=== PATIENT | male | born 1960 | race Hispanic/Latino ===

== ENCOUNTER 2019-01-12 21:02 | Emergency (ER) | payer MEDICAID ==
[~2019-01-12 21:02] MED LIST: AMLO10TA7 PO; DIAZ10TA PO; PHEN100C23 PO; TRAM50TA4 PO; WARF-67 PO; ZOLP10TA2 PO
[2019-01-12] MEDS ORDERED: MORPHINE SULFATE 4 MG/1ML SYG ONE (21:41)
[2019-01-12] MEDS ORDERED: ONDANSETRON HCL 4 MG/2 ML VIAL ONE (21:41)
[2019-01-12] MEDS ORDERED: SODIUM CHLORIDE 0.9% 500ML 500 ML IV ONE (21:41)
[2019-01-12 21:55] LABS: EOSINOPHILS % (AUTO) 2.8 % (0.0-8.0); HEMATOCRIT 33.3 % (42-54); LYMPHOCYTES % (AUTO) 33.3 % (21.0-51.0); MEAN CORPUSCULAR HEMOGLOBIN 35.5 pg (27.0-33.0); MEAN CORPUSCULAR HGB CONC 34.5 g/dL (32.0-36.0); MEAN CORPUSCULAR VOLUME 102.8 fL (79-99); MONOCYTES % (AUTO) 13.5 % (3.0-13.0); NEUTROPHILS % (AUTO) 49.4 % (40.0-77.0); PLATELET COUNT (AUTO) 304 K/uL (130-400); RED BLOOD CELL COUNT(AUTO) 3.24 MIL/uL (4.50-6.20); RED CELL DISTRIBUTION WIDTH 14.1 % (11.0-15.5)
[2019-01-12 22:03] LABS: POTASSIUM 3.7 mmol/L (3.5-5.1)
== END 2019-01-12 23:56 | disposition home or self-care (01) ==
LOC: EDH 21:02
DX: M96.841 Postprocedural hematoma of a musculoskeletal structure following other procedure (principal); M25.561 Pain in right knee; M25.461 Effusion, right knee; I10 Essential (primary) hypertension; Z98.890 Other specified postprocedural states; Z72.0 Tobacco use
CPT/HCPCS: 36415; 80048; 85025; 93971; 96374; 96375; 99285; J2270; J2405; J7040

== ENCOUNTER 2019-03-12 10:23 | Emergency (ER) | payer MEDICAID ==
[2019-03-12] MEDS ORDERED: KETOROLAC TROMETHAMINE 30MG/ML ONE (10:54)
== END 2019-03-12 11:02 | disposition home or self-care (01) ==
LOC: EDH 10:23
DX: S63.592A Other specified sprain of left wrist, initial encounter (principal); I10 Essential (primary) hypertension; Z98.890 Other specified postprocedural states; Z72.0 Tobacco use; X50.0XXA Overexertion from strenuous movement or load, initial encounter; Y93.89 Activity, other specified; Y92.89 Other specified places as the place of occurrence of the external cause; Y99.8 Other external cause status
CPT/HCPCS: 29125; 73110; 96372; 99284; J1885

== ENCOUNTER 2019-03-14 08:30 | Emergency (ER) | payer MEDICAID ==
[2019-03-14] MEDS ORDERED: HYDROCODONE/ACETAMINOPHEN 5/325 MG TAB ONE (09:20)
== END 2019-03-14 09:55 | disposition home or self-care (01) ==
LOC: EDH 08:30
DX: S63.502A Unspecified sprain of left wrist, initial encounter (principal); I10 Essential (primary) hypertension; Z72.0 Tobacco use; Z98.890 Other specified postprocedural states; Y93.H1 Activity, digging, shoveling and raking; Y93.89 Activity, other specified; Y92.89 Other specified places as the place of occurrence of the external cause; Y99.8 Other external cause status
CPT/HCPCS: 29125

== ENCOUNTER 2019-03-22 01:43 | Emergency (ER) | payer MEDICAID | END 2019-03-22 02:25 | disposition home or self-care (01) | LOC: EDH 01:43 | DX: Z02.83 Encounter for blood-alcohol and blood-drug test (principal); I10 Essential (primary) hypertension; Z98.890 Other specified postprocedural states ==

== ENCOUNTER 2019-03-22 02:55 | Emergency (ER) | payer MEDICAID ==
[2019-03-22] MEDS ORDERED: PHENYTOIN SODIUM 100 MG ERCAP PO ONE (04:45)
[2019-03-22] MEDS ORDERED: ACETAMINOPHEN EXTRA STRENGTH 500 MG TABLET ONE (04:46)
[2019-03-22] MEDS ORDERED: SULFAMETHOX-TMP DS 800/160 TAB ONE (04:46)
[2019-03-22] MEDS ORDERED: IBUPROFEN 200 MG TAB ONE (04:47)
== END 2019-03-22 05:02 | disposition home or self-care (01) ==
LOC: EDH 02:55
DX: S90.412A Abrasion, left great toe, initial encounter (principal); G40.89 Other seizures; I10 Essential (primary) hypertension; Z98.890 Other specified postprocedural states; Z72.0 Tobacco use; X58.XXXA Exposure to other specified factors, initial encounter; Y93.89 Activity, other specified; Y92.89 Other specified places as the place of occurrence of the external cause; Y99.8 Other external cause status

== ENCOUNTER 2019-04-07 23:10 | Emergency (ER) | payer MEDICAID | END 2019-04-08 01:25 | disposition home or self-care (01) | LOC: EDH 23:10 | DX: S09.8XXA Other specified injuries of head, initial encounter (principal); K74.60 Unspecified cirrhosis of liver; I10 Essential (primary) hypertension; E11.9 Type 2 diabetes mellitus without complications; I25.10 Atherosclerotic heart disease of native coronary artery without angina pectoris; Z72.0 Tobacco use; Y08.89XA Assault by other specified means, initial encounter; Y93.89 Activity, other specified; Y92.098 Other place in other non-institutional residence as the place of occurrence of the external cause; Y99.8 Other external cause status | CPT/HCPCS: 70450 ==

== ENCOUNTER 2021-01-11 09:56 | Emergency (ER) | payer MEDICAID ==
[~2021-01-11] VITALS: Ht 175.3 cm; Wt 90.3 kg
[~2021-01-11 09:56] MED LIST changes: +AMLO-258 PO; -AMLO10TA7 PO
[2021-01-11 09:57] VITALS: BP 144/91
[2021-01-11] MEDS ORDERED: HYDROCODONE/ACETAMINOPHEN 5/325 MG TAB PO SCH (12:30)
[2021-01-11] MEDS ORDERED: KETOROLAC 30MG VIAL (30MG/ML) IM SCH (12:30)
[2021-01-11] MEDS ORDERED: IBUP-2070 PO (13:03)
[2021-01-11] MEDS ORDERED: CYCL5TAB PO (13:03)
[2021-01-11 13:19] VITALS: BP 136/76
== END 2021-01-11 13:11 | disposition home or self-care (01) ==
LOC: EDH 09:56
DX: S60.212A Contusion of left wrist, initial encounter (principal); S60.222A Contusion of left hand, initial encounter; F17.210 Nicotine dependence, cigarettes, uncomplicated; Z79.1 Long term (current) use of non-steroidal anti-inflammatories (NSAID); Z79.01 Long term (current) use of anticoagulants; Z79.899 Other long term (current) drug therapy; W01.198A Fall on same level from slipping, tripping and stumbling with subsequent striking against other object, initial encounter; Y93.89 Activity, other specified; Y92.89 Other specified places as the place of occurrence of the external cause; Y99.8 Other external cause status
CPT/HCPCS: 29125; 73100; 73130; 96372; 99284; J1885

== ENCOUNTER 2021-01-12 07:18 | Emergency (ER) | payer MEDICAID ==
[~2021-01-12] VITALS: Ht 175.3 cm; Wt 90.3 kg
[~2021-01-12 07:18] MED LIST changes: +CYCL5TAB PO; +IBUP-2070 PO
[2021-01-12] MEDS ORDERED: HYDROCODONE/ACETAMINOPHEN 5/325 MG TAB PO SCH (08:00)
== END 2021-01-12 08:54 | disposition home or self-care (01) ==
LOC: EDH 07:18
DX: S60.212A Contusion of left wrist, initial encounter (principal); Z79.01 Long term (current) use of anticoagulants; Z79.899 Other long term (current) drug therapy; Z79.1 Long term (current) use of non-steroidal anti-inflammatories (NSAID); X58.XXXA Exposure to other specified factors, initial encounter; Y93.89 Activity, other specified; Y92.89 Other specified places as the place of occurrence of the external cause; Y99.8 Other external cause status

== ENCOUNTER 2022-12-25 16:06 | Emergency (ER) | payer MEDICAID ==
[~2022-12-25] VITALS: Ht 175.3 cm; Wt 75.7 kg
[~2022-12-25 16:06] MED LIST changes: +HYOS0.124 SL
[2022-12-25 16:52] VITALS: BP 189/83
[2022-12-25 17:38] LABS: BASOPHILS % (AUTO) 0.6 % (0.0-5.0); EOSINOPHILS % (AUTO) 1.7 % (0.0-8.0); HEMATOCRIT 34.9 % (42-54); LYMPHOCYTES % (AUTO) 44.9 % (21.0-51.0); MEAN CORPUSCULAR HEMOGLOBIN 38.5 pg (27.0-33.0); MEAN CORPUSCULAR VOLUME 110.1 fL (79-99); MONOCYTES % (AUTO) 9.6 % (3.0-13.0); NEUTROPHILS % (AUTO) 42.8 % (40.0-77.0); PLATELET COUNT (AUTO) 161 K/uL (130-400); RED BLOOD CELL COUNT(AUTO) 3.17 MIL/uL (4.50-6.20); RED CELL DISTRIBUTION WIDTH 17.2 % (11.0-15.5); WHITE BLOOD COUNT (AUTO) 4.8 K/uL (4.8-10.8)
[2022-12-25 17:44] LABS: APPEARANCE,URINE CLEAR (CLEAR); BILIRUBIN,URINE NEGATIVE (NEGATIVE); COLOR,URINE LIGHT-YELLOW (YELLOW); GLUCOSE, URINE (UA) NEGATIVE (NEGATIVE); KETONES,URINE NEGATIVE (NEGATIVE); LEUKOCYTE ESTERASE ,URINE NEGATIVE Leu/uL (NEGATIVE); NITRATE,URINE NEGATIVE (NEGATIVE); OCCULT BLOOD,URINE NEGATIVE (NEGATIVE); PROTEIN,URINE 10 mg/dL (NEGATIVE); UROBILINOGEN,URINE 0.2 mg/dL (0.2-1.0)
[2022-12-25 17:46] LABS: WBC,URINE 0-1 /HPF (0-1)
[2022-12-25 17:59] LABS: ALBUMIN 3.9 g/dL (3.5-5.0); CREATININE 0.9 mg/dL (0.5-1.5); TOTAL PROTEIN, SERUM 7.7 g/dL (6.0-8.3)
[2022-12-25 18:09] LABS: POTASSIUM 2.9 mmol/L (3.5-5.1)
[2022-12-25] MEDS ORDERED: KETOROLAC 60 MG VIAL (30MG/ML) IM ONE (18:30)
[2022-12-25] MEDS ORDERED: POTASSIUM BICARB/CIT AC 25 MEQ TABLET.EFF PO ONE (18:30)
[2022-12-25] MEDS ORDERED: MORPHINE 2 MG SYG IVP ONE (18:30)
== END 2022-12-25 21:23 | disposition home or self-care (01) ==
LOC: EDH 16:06
DX: G89.29 Other chronic pain (principal); R10.31 Right lower quadrant pain; F17.200 Nicotine dependence, unspecified, uncomplicated; I10 Essential (primary) hypertension; N20.0 Calculus of kidney; Z79.899 Other long term (current) drug therapy; Z87.19 Personal history of other diseases of the digestive system; Z87.442 Personal history of urinary calculi; Z98.890 Other specified postprocedural states
CPT/HCPCS: 99285; 74176; 96374; 80053; 83690; 85025; 81001; 36415; 74018; 96372; J1885

== ENCOUNTER 2023-02-08 22:07 | Observation (INO) | payer MEDICAID ==
[~2023-02-08] VITALS: Ht 175.3 cm; Wt 78.5 kg
[2023-02-08] MEDS ORDERED: ENOXAPARIN SODIUM 80 MG/0.8 ML SQ ONE (23:00)
[2023-02-08] MEDS ORDERED: FUROSEMIDE 40MG VIAL IVP ONE (23:00)
[2023-02-08] MEDS ORDERED: MORPHINE 4 MG SYG IVP ONE (23:00)
[2023-02-08] MEDS ORDERED: IPRATROPIUM/ALBUTEROL SULFATE 3 ML SOLUTION IH ONE (23:00)
[2023-02-08] MEDS ORDERED: ASPIRIN 325MG TAB PO ONE (23:00)
[2023-02-08] MEDS ORDERED: NITROGLYCERIN 1GM OINT 1 INCH/1GM TD ONE (23:00)
[2023-02-08 23:08] LABS: ABG BASE EXCESS -2.9 mmol/L (-2.0-3.0); ABG HCO3 20.7 mmol/L (21.0-28.0); ABG OXYGEN SATURATION 95.7 % (95.0-99.0); ABG PCO2 33 mmHg (35-48)
[2023-02-09 00:06] LABS: BASOPHILS % (AUTO) 0.7 % (0.0-5.0); EOSINOPHILS % (AUTO) 3.2 % (0.0-8.0); HEMATOCRIT 32.8 % (42-54); LYMPHOCYTES % (AUTO) 45.7 % (21.0-51.0); MEAN CORPUSCULAR HEMOGLOBIN 39.2 pg (27.0-33.0); MEAN CORPUSCULAR HGB CONC 34.1 g/dL (32.0-36.0); MEAN CORPUSCULAR VOLUME 114.7 fL (79-99); MONOCYTES % (AUTO) 8.3 % (3.0-13.0); NEUTROPHILS % (AUTO) 41.6 % (40.0-77.0); PLATELET COUNT (AUTO) 238 K/uL (130-400); RED BLOOD CELL COUNT(AUTO) 2.86 MIL/uL (4.50-6.20); RED CELL DISTRIBUTION WIDTH 13.2 % (11.0-15.5); WHITE BLOOD COUNT (AUTO) 4.1 K/uL (4.8-10.8)
[2023-02-09 00:32] LABS: B-TYPE NATRIURETIC PEPTIDE 169 pg/mL (0-100)
[2023-02-09 00:52] LABS: CREATININE 0.9 mg/dL (0.5-1.5); POTASSIUM 3.5 mmol/L (3.5-5.1)
[2023-02-09 01:06] LABS: ALBUMIN 3.6 g/dL (3.5-5.0); TOTAL PROTEIN, SERUM 8.3 g/dL (6.0-8.3)
[2023-02-09] MEDS ORDERED: ALBUTEROL 0.083% 2.5 MG/3 ML INH IH ONE (01:30)
[2023-02-09] MEDS ORDERED: MORPHINE 4 MG SYG IVP ONE (02:00)
[2023-02-09] MEDS ORDERED: IOHEXOL 350 MG/ML 100ML INFUS..BTL IV ONE (02:08)
[2023-02-09] MEDS ORDERED: HYDRALAZINE 20MG/ML VIAL IV PRN (02:30)
[2023-02-09] MEDS ORDERED: CLONIDINE HCL 0.1 MG TABLET PO PRN (02:30)
[2023-02-09] MEDS ORDERED: ACETAMINOPHEN 325 MG TAB PO PRN (02:30)
[2023-02-09] MEDS ORDERED: HYDROCODONE/ACETAMINOPHEN 5/325 MG TAB PO PRN (02:30)
[2023-02-09] MEDS ORDERED: ALBUTEROL 0.083% 2.5 MG/3 ML INH IH PRN (02:30)
[2023-02-09] MEDS ORDERED: LABETALOL 20MG SYG IV PRN (02:30)
[2023-02-09] MEDS ORDERED: ONDANSETRON 4MG INJ IVP PRN (02:30)
[2023-02-09] MEDS ORDERED: ACETAMINOPHEN 650 MG SUPPOSITORY RC PRN (02:30)
[2023-02-09] MEDS: FUROSEMIDE 40MG VIAL IV SCH ×2 (03:38→14:31)
[2023-02-09] MEDS ORDERED: HEPARIN 5,000 UNIT VIAL SQ PRN (07:00)
[2023-02-09 07:18] LABS: EOSINOPHILS % (AUTO) 3.5 % (0.0-8.0); HEMATOCRIT 36.4 % (42-54); LYMPHOCYTES % (AUTO) 27.5 % (21.0-51.0); MEAN CORPUSCULAR HEMOGLOBIN 38.6 pg (27.0-33.0); MEAN CORPUSCULAR HGB CONC 33.5 g/dL (32.0-36.0); MEAN CORPUSCULAR VOLUME 115.2 fL (79-99); MONOCYTES % (AUTO) 6.7 % (3.0-13.0); NEUTROPHILS % (AUTO) 60.8 % (40.0-77.0); PLATELET COUNT (AUTO) 276 K/uL (130-400); RED BLOOD CELL COUNT(AUTO) 3.16 MIL/uL (4.50-6.20); RED CELL DISTRIBUTION WIDTH 13.2 % (11.0-15.5)
[2023-02-09] MEDS: INSULIN HUMULIN R 100 UNIT/ML 3ML SQ SCH ×2 (07:30→11:30)
[2023-02-09] MEDS: HEPARIN 25,000 UNITS/250ML D5W 250 ML IV SCH ×2 (08:11→13:00)
[2023-02-09] MEDS ORDERED: ENOXAPARIN SODIUM 30 MG/0.3 ML SQ SCH (09:00)
[2023-02-09] MEDS ORDERED: CEFTRIAXONE 1G VIAL IV SCH (09:00)
[2023-02-09] MEDS ORDERED: AZITHROMYCIN 500MG+NS 250ML IV SCH (09:00)
[2023-02-09 11:00] VITALS: BP 156/75
[2023-02-09] MEDS ORDERED: NICO-777 TP (12:54)
[2023-02-09] MEDS ORDERED: ACET-2079 PO (12:54)
[2023-02-09] MEDS ORDERED: SERT-438 PO (13:00)
[2023-02-09] MEDS ORDERED: SUCR1TAB PO (13:00)
[2023-02-09] MEDS ORDERED: LINA290C PO (13:00)
[2023-02-09] MEDS ORDERED: OMEP40CA21 PO (13:00)
[2023-02-09] MEDS ORDERED: LISI20TA24 PO (13:00)
[2023-02-09] MEDS ORDERED: ONDA-104 PO (13:00)
[2023-02-09] MEDS ORDERED: DICY20TA2 PO (13:00)
[2023-02-09] MEDS ORDERED: ACETAMINOPHEN WITH CODEINE 1 TAB TAB PO PRN (14:00)
[2023-02-09] MEDS ORDERED: HYOSCYAMINE SULFATE 0.125 MG TAB.SUBL SL PRN (14:00)
[2023-02-09] MEDS ORDERED: DIAZEPAM 10 MG PO PRN (14:00)
[2023-02-09] MEDS ORDERED: PHENYTOIN SODIUM 100 MG ERCAP PO SCH (14:00)
[2023-02-09] MEDS ORDERED: MORPHINE 2 MG SYG IVP PRN (14:00)
[2023-02-09] MEDS ORDERED: ZOLPIDEM TARTRATE 5 MG TAB PO PRN (14:30)
[2023-02-09] MEDS ORDERED: DIAZEPAM 5 MG TABLET PO PRN (14:30)
[2023-02-09 14:48] LABS: INR 0.93 (0.85-1.15); PROTHROMBIN TIME 10.6 SEC (9.6-11.6)
[2023-02-09 14:49] LABS: PARTIAL THROMBOPLASTIN TIME 78.9 SEC (26.3-35.5)
[2023-02-09 16:12] VITALS: BP 152/76
[2023-02-09] MEDS ORDERED: SERTRALINE HCL 50 MG TABLET PO SCH (21:00)
[2023-02-09] MEDS ORDERED: NON-FORMULARY MEDICATION 1 EACH (Sertraline HCl 1 TAB) PO SCH (21:00)
[2023-02-09] MEDS ORDERED: NON-FORMULARY MEDICATION 1 EACH (Zolpidem Tartrate (Ambien) 10 MG) PO SCH (21:00)
[2023-02-09] MEDS ORDERED: FAMOTIDINE 20MG VIAL IV SCH (21:00)
[2023-02-10] MEDS ORDERED: NICOTINE 21 MG/ 24 HR PATCH TD SCH ×2 (09:00)
[2023-02-10] MEDS ORDERED: LISINOPRIL 20 MG TABLET PO SCH (09:00)
[2023-02-10] MEDS ORDERED: AMLODIPINE 5 MG TAB PO SCH (09:00)
[2023-02-10] MEDS ORDERED: NON-FORMULARY MEDICATION 1 EACH (Amlodipine Besylate 10 MG) PO SCH (09:00)
== END 2023-02-09 18:34 | disposition left against medical advice (07) ==
LOC: EDH 22:07 → EDHIP 22:08 → 4DH 02-09 10:45 → 4BH 02-09 15:29
PROVIDERS: ADMIT Internal Medicine; ATTEND Internal Medicine
DX: I74.9 Embolism and thrombosis of unspecified artery (principal); I11.0 Hypertensive heart disease with heart failure; I50.9 Heart failure, unspecified; G40.909 Epilepsy, unspecified, not intractable, without status epilepticus; M79.89 Other specified soft tissue disorders; J81.0 Acute pulmonary edema; E78.5 Hyperlipidemia, unspecified; F17.200 Nicotine dependence, unspecified, uncomplicated; Z96.652 Presence of left artificial knee joint; Z79.899 Other long term (current) drug therapy; Z98.890 Other specified postprocedural states; Z86.19 Personal history of other infectious and parasitic diseases
CPT/HCPCS: 96372 ×2; 96375 ×3; 99285; 82803; 83880; 85025 ×2; 36415 ×2; 71045; 93005; 36600; 94640 ×2; 96376; 96365; 96366; 82550 ×4; 80185; 83874 ×4; 84484 ×4; 80053; 85610; 85730 ×2; 82948 ×3; 71260; 74177; 93306; 93356; 93970; 94664; J2270 ×2; J1650; J1940 ×3; G0378 ×16; J0696; J0456; J1644 ×2; Q9967; 85007; 96367

== ENCOUNTER 2023-05-17 11:15 | Emergency (ER) | payer MEDICAID ==
[~2023-05-17 11:15] MED LIST changes: +ACET-2079 PO; -CYCL5TAB PO; -DIAZ10TA PO; +DICY20TA2 PO; -IBUP-2070 PO; +LINA290C PO; +LISI20TA24 PO; +NICO-777 TP; +OMEP40CA21 PO; +ONDA-104 PO; +SERT-438 PO; +SUCR1TAB PO; -TRAM50TA4 PO; -WARF-67 PO; +[UNRECOGNIZED DRUG - CODE] PO
[2023-05-18] MEDS ORDERED: LACT10SO9 PO (22:19)
[2023-05-18] MEDS ORDERED: METH4TAB3 PO (22:19)
[2023-05-18] MEDS ORDERED: FAMO-136 PO (22:19)
== END 2023-05-17 18:04 | disposition left against medical advice (07) ==
LOC: EDH 11:15
DX: R10.9 Unspecified abdominal pain (principal); R11.2 Nausea with vomiting, unspecified; I10 Essential (primary) hypertension; R56.9 Unspecified convulsions; F17.200 Nicotine dependence, unspecified, uncomplicated; Z79.899 Other long term (current) drug therapy; Z98.890 Other specified postprocedural states
CPT/HCPCS: 74176

== ENCOUNTER → 2023-05-18 | Emergency (ER) | payer MEDICAID ==
[~2023-05-18] VITALS: Ht 175.3 cm; Wt 73.0 kg
[~2023-05-18] MED LIST changes: +FAMO-136 PO; +FAMOTIDINE 20MG VIAL IV ONE; +LACT10SO9 PO; +METH4TAB3 PO; +SOLU-MEDROL 125MG VIAL IVP ONE
[2023-05-18 19:06] LABS: APPEARANCE,URINE CLEAR (CLEAR); BILIRUBIN,URINE NEGATIVE (NEGATIVE); COLOR,URINE LIGHT-YELLOW (YELLOW); GLUCOSE, URINE (UA) NEGATIVE (NEGATIVE); KETONES,URINE NEGATIVE (NEGATIVE); LEUKOCYTE ESTERASE ,URINE NEGATIVE Leu/uL (NEGATIVE); NITRATE,URINE NEGATIVE (NEGATIVE); OCCULT BLOOD,URINE NEGATIVE (NEGATIVE); PH,URINE 5.5 (5.0-8.0); PROTEIN,URINE 10 mg/dL (NEGATIVE); UROBILINOGEN,URINE 0.2 mg/dL (0.2-1.0)
[2023-05-18 19:09] LABS: ADD UA MICROSCOPIC YES
[2023-05-18 19:12] LABS: MUCUS,URINE RARE LPF (None Seen); RBC,URINE 0-1 /HPF (0-1); WBC,URINE 0-1 /HPF (0-1)
[2023-05-18 19:18] LABS: BASOPHILS # (AUTO) 0.04 K/uL (0.00-0.20); BASOPHILS % (AUTO) 0.6 % (0.0-5.0); EOSINOPHILS # (AUTO) 0.06 K/uL (0.00-0.70); EOSINOPHILS % (AUTO) 0.9 % (0.0-8.0); HEMATOCRIT 40.8 % (42-54); IMMATURE GRANULOCYTE ABSOLUTE 0.02 K/uL (0-1); LYMPHOCYTES # (AUTO) 3.2 K/uL (1.0-4.8); LYMPHOCYTES % (AUTO) 49.3 % (21.0-51.0); MEAN CORPUSCULAR HEMOGLOBIN 37.7 pg (27.0-33.0); MEAN CORPUSCULAR HGB CONC 34.6 g/dL (32.0-36.0); MEAN CORPUSCULAR VOLUME 109.1 fL (79-99); MONOCYTES # (AUTO) 0.5 K/uL (0.1-1.0); MONOCYTES % (AUTO) 8.4 % (3.0-13.0); NEUTROPHILS # (AUTO) 2.6 K/uL (1.8-7.7); NEUTROPHILS % (AUTO) 40.5 % (40.0-77.0); PLATELET COUNT (AUTO) 205 K/uL (130-400); RED BLOOD CELL COUNT(AUTO) 3.74 MIL/uL (4.50-6.20); RED CELL DISTRIBUTION WIDTH 14.8 % (11.0-15.5); WHITE BLOOD COUNT (AUTO) 6.5 K/uL (4.8-10.8)
[2023-05-18 19:27] LABS: CREATININE 1.2 mg/dL (0.5-1.5); POTASSIUM 3.4 mmol/L (3.5-5.1)
[2023-05-18 19:39] LABS: ALBUMIN 4.1 g/dL (3.5-5.0); BILIRUBIN,TOTAL 0.5 mg/dL (0.2-1.0); TOTAL PROTEIN, SERUM 8.1 g/dL (6.0-8.3)
[2023-05-18 22:39] VITALS: BP 160/68; PULSE 64; RESP 18; O2SAT 98
== END ==
LOC: EDH 18:22
DX: K21.9 Gastro-esophageal reflux disease without esophagitis (principal); G89.29 Other chronic pain; M25.511 Pain in right shoulder; M25.562 Pain in left knee; K59.00 Constipation, unspecified; I10 Essential (primary) hypertension; R56.9 Unspecified convulsions; F17.200 Nicotine dependence, unspecified, uncomplicated; Z79.899 Other long term (current) drug therapy; Z98.890 Other specified postprocedural states
CPT/HCPCS: 99284; 96374; 96375; 84484; 80053; 83690; 85025; 81001; 36415; 93005; J2930; S0028; J3490

== ENCOUNTER 2023-06-13 06:51 | Emergency (ER) | payer MEDICAID ==
[~2023-06-13] VITALS: Ht 175.3 cm; Wt 90.7 kg
[~2023-06-13 06:51] MED LIST changes: -FAMOTIDINE 20MG VIAL IV ONE; -SOLU-MEDROL 125MG VIAL IVP ONE
[2023-06-13 08:02] LABS: BASOPHILS # (AUTO) 0.03 K/uL (0.00-0.20); BASOPHILS % (AUTO) 0.6 % (0.0-5.0); EOSINOPHILS # (AUTO) 0.18 K/uL (0.00-0.70); EOSINOPHILS % (AUTO) 3.9 % (0.0-8.0); HEMATOCRIT 30.7 % (42-54); IMMATURE GRANULOCYTE ABSOLUTE 0.03 K/uL (0-1); LYMPHOCYTES # (AUTO) 1.4 K/uL (1.0-4.8); LYMPHOCYTES % (AUTO) 29.5 % (21.0-51.0); MEAN CORPUSCULAR HEMOGLOBIN 37.2 pg (27.0-33.0); MEAN CORPUSCULAR HGB CONC 33.6 g/dL (32.0-36.0); MEAN CORPUSCULAR VOLUME 110.8 fL (79-99); MONOCYTES # (AUTO) 0.5 K/uL (0.1-1.0); MONOCYTES % (AUTO) 11.4 % (3.0-13.0); NEUTROPHILS # (AUTO) 2.5 K/uL (1.8-7.7); PLATELET COUNT (AUTO) 229 K/uL (130-400); RED BLOOD CELL COUNT(AUTO) 2.77 MIL/uL (4.50-6.20); RED CELL DISTRIBUTION WIDTH 13.8 % (11.0-15.5); WHITE BLOOD COUNT (AUTO) 4.6 K/uL (4.8-10.8)
[2023-06-13 08:20] LABS: ALBUMIN 3.2 g/dL (3.5-5.0); BILIRUBIN,TOTAL 0.5 mg/dL (0.2-1.0); CREATININE 0.9 mg/dL (0.5-1.5); POTASSIUM 4.1 mmol/L (3.5-5.1); TOTAL PROTEIN, SERUM 6.8 g/dL (6.0-8.3)
[2023-06-13 09:36] LABS: APPEARANCE,URINE CLEAR (CLEAR); BILIRUBIN,URINE NEGATIVE (NEGATIVE); COLOR,URINE LIGHT-YELLOW (YELLOW); GLUCOSE, URINE (UA) NEGATIVE (NEGATIVE); KETONES,URINE NEGATIVE (NEGATIVE); LEUKOCYTE ESTERASE ,URINE NEGATIVE Leu/uL (NEGATIVE); NITRATE,URINE NEGATIVE (NEGATIVE); OCCULT BLOOD,URINE NEGATIVE (NEGATIVE); PROTEIN,URINE NEGATIVE (NEGATIVE); UROBILINOGEN,URINE 0.2 mg/dL (0.2-1.0)
[2023-06-13 09:38] LABS: ADD UA MICROSCOPIC NO
[2023-06-13 09:44] LABS: AMPHET/METH SCREEN,URINE NEGATIVE (NEGATIVE); BARBITURATE SCREEN, URINE NEGATIVE (NEGATIVE); BENZODIAZEPINES SCREEN,URINE POSITIVE (NEGATIVE); CANNABINOID SCREEN,URINE NEGATIVE (NEGATIVE); COCAINE SCREEN,URINE NEGATIVE (NEGATIVE); OPIATE SCREEN,URINE NEGATIVE (NEGATIVE); PHENCYCLIDINE SCREEN,URINE NEGATIVE (NEGATIVE)
[2023-06-13] MEDS ORDERED: ACETAMINOPHEN 325 MG TAB PO ONE ×2 (10:00→18:00)
[2023-06-13 10:26] LABS: INR < 0.93 (0.85-1.15); PROTHROMBIN TIME 10.6 SEC (9.6-11.6)
[2023-06-13 10:28] LABS: PARTIAL THROMBOPLASTIN TIME 31.6 SEC (26.3-35.5)
[2023-06-13] MEDS ORDERED: LEVETIRACETAM 500 MG/5 ML SD VIAL IV SCH (12:30)
[2023-06-13 13:53] VITALS: BP 184/74; PULSE 60; RESP 17; O2SAT 99
[2023-06-13] MEDS ORDERED: LEVE-43 PO (17:43)
== END 2023-06-13 18:14 | disposition home or self-care (01) ==
LOC: EDH 06:51
DX: R41.82 Altered mental status, unspecified (principal); G89.29 Other chronic pain; R10.9 Unspecified abdominal pain; I10 Essential (primary) hypertension; F17.200 Nicotine dependence, unspecified, uncomplicated; Z79.899 Other long term (current) drug therapy; Z86.73 Personal history of transient ischemic attack (TIA), and cerebral infarction without residual deficits
CPT/HCPCS: 99285; 93970; 70450; 96374; 71045; 83735; 80053; 80305; 82140; 85025; 85610; 85730; 81003; 36415; 74176; J1953

== ENCOUNTER 2023-06-14 21:22 | Emergency (ER) | payer MEDICAID ==
[~2023-06-14] VITALS: Ht 172.7 cm; Wt 72.6 kg
[~2023-06-14 21:22] MED LIST changes: +LEVE-43 PO
[2023-06-14] MEDS ORDERED: PANTOPRAZOLE 40 MG/VIAL IVP ONE (22:00)
[2023-06-14] MEDS ORDERED: PANTOPRAZOLE 40MG INJ 80 MG in 0.9%NACL 100ML 100 ML IV SCH (22:00)
[2023-06-14 22:12] LABS: BASOPHILS # (AUTO) 0.04 K/uL (0.00-0.20); BASOPHILS % (AUTO) 0.8 % (0.0-5.0); EOSINOPHILS % (AUTO) 4.2 % (0.0-8.0); HEMATOCRIT 29.7 % (42-54); IMMATURE GRANULOCYTE ABSOLUTE 0.01 K/uL (0-1); LYMPHOCYTES # (AUTO) 2.1 K/uL (1.0-4.8); LYMPHOCYTES % (AUTO) 43.5 % (21.0-51.0); MEAN CORPUSCULAR HEMOGLOBIN 37.7 pg (27.0-33.0); MEAN CORPUSCULAR VOLUME 110.8 fL (79-99); MONOCYTES # (AUTO) 0.5 K/uL (0.1-1.0); NEUTROPHILS # (AUTO) 1.9 K/uL (1.8-7.7); NEUTROPHILS % (AUTO) 40.3 % (40.0-77.0); PLATELET COUNT (AUTO) 232 K/uL (130-400); RED BLOOD CELL COUNT(AUTO) 2.68 MIL/uL (4.50-6.20); RED CELL DISTRIBUTION WIDTH 13.2 % (11.0-15.5); WHITE BLOOD COUNT (AUTO) 4.7 K/uL (4.8-10.8)
[2023-06-14 22:21] LABS: CREATININE 1.1 mg/dL (0.5-1.5); POTASSIUM 3.3 mmol/L (3.5-5.1)
[2023-06-14 22:23] LABS: INR 0.94 (0.85-1.15)
[2023-06-14 22:24] LABS: PARTIAL THROMBOPLASTIN TIME 32.2 SEC (26.3-35.5)
[2023-06-14 22:30] LABS: ALBUMIN 3.2 g/dL (3.5-5.0); BILIRUBIN,TOTAL 0.5 mg/dL (0.2-1.0); TOTAL PROTEIN, SERUM 6.6 g/dL (6.0-8.3)
[2023-06-14 22:52] LABS: APPEARANCE,URINE CLEAR (CLEAR); BILIRUBIN,URINE NEGATIVE (NEGATIVE); COLOR,URINE LIGHT-YELLOW (YELLOW); GLUCOSE, URINE (UA) NEGATIVE (NEGATIVE); KETONES,URINE NEGATIVE (NEGATIVE); LEUKOCYTE ESTERASE ,URINE NEGATIVE Leu/uL (NEGATIVE); NITRATE,URINE NEGATIVE (NEGATIVE); OCCULT BLOOD,URINE NEGATIVE (NEGATIVE); PH,URINE 5.5 (5.0-8.0); PROTEIN,URINE NEGATIVE (NEGATIVE); UROBILINOGEN,URINE 0.2 mg/dL (0.2-1.0)
[2023-06-14 22:53] LABS: ADD UA MICROSCOPIC NO
[2023-06-15] MEDS ORDERED: HYDROXYZINE 25 MG TABLET PO ONE (00:30)
[2023-06-15] MEDS ORDERED: MORPHINE 2 MG SYG IVP ONE (00:30)
[2023-06-15] MEDS ORDERED: HYDRALAZINE 20MG/ML VIAL IV ONE (01:00)
[2023-06-15 02:13] VITALS: BP 162/87; PULSE 58; RESP 16; O2SAT 99
[2023-06-15] MEDS ORDERED: ACET-2079 PO (12:53)
== END 2023-06-15 02:03 | disposition left against medical advice (07) ==
LOC: EDH 21:22
DX: K92.2 Gastrointestinal hemorrhage, unspecified (principal); I10 Essential (primary) hypertension; F17.200 Nicotine dependence, unspecified, uncomplicated; Z79.899 Other long term (current) drug therapy
CPT/HCPCS: 99284; 96374; 84484; 80053; 83690; 85025; 85610; 85730; 86850; 86900; 86901; 81003; 36415; 96376; 93005; S0164; 96375; C9113; J0360; J2270

== ENCOUNTER 2023-06-15 10:10 | Emergency (ER) | payer MEDICAID ==
[~2023-06-15] VITALS: Ht 172.7 cm; Wt 73.0 kg
[2023-06-15 10:29] LABS: BASOPHILS # (AUTO) 0.02 K/uL (0.00-0.20); BASOPHILS % (AUTO) 0.4 % (0.0-5.0); EOSINOPHILS # (AUTO) 0.09 K/uL (0.00-0.70); EOSINOPHILS % (AUTO) 1.6 % (0.0-8.0); IMMATURE GRANULOCYTE ABSOLUTE 0.02 K/uL (0-1); LYMPHOCYTES # (AUTO) 0.4 K/uL (1.0-4.8); LYMPHOCYTES % (AUTO) 7.9 % (21.0-51.0); MEAN CORPUSCULAR HEMOGLOBIN 38.2 pg (27.0-33.0); MEAN CORPUSCULAR HGB CONC 34.4 g/dL (32.0-36.0); MEAN CORPUSCULAR VOLUME 110.8 fL (79-99); MONOCYTES # (AUTO) 0.4 K/uL (0.1-1.0); MONOCYTES % (AUTO) 7.9 % (3.0-13.0); NEUTROPHILS # (AUTO) 4.5 K/uL (1.8-7.7); NEUTROPHILS % (AUTO) 81.8 % (40.0-77.0); PLATELET COUNT (AUTO) 239 K/uL (130-400); RED BLOOD CELL COUNT(AUTO) 3.25 MIL/uL (4.50-6.20); RED CELL DISTRIBUTION WIDTH 13.4 % (11.0-15.5); WHITE BLOOD COUNT (AUTO) 5.6 K/uL (4.8-10.8)
[2023-06-15 10:38] LABS: CREATININE 0.9 mg/dL (0.5-1.5); POTASSIUM 4.2 mmol/L (3.5-5.1)
[2023-06-15 10:42] LABS: ALBUMIN 3.7 g/dL (3.5-5.0); BILIRUBIN,TOTAL 0.6 mg/dL (0.2-1.0)
[2023-06-15 10:57] LABS: B-TYPE NATRIURETIC PEPTIDE 125 pg/mL (0-100)
[2023-06-15 10:59] LABS: INR < 0.93 (0.85-1.15); PROTHROMBIN TIME 10.8 SEC (9.6-11.6)
[2023-06-15] MEDS ORDERED: DICYCLOMINE HCL 10 MG/5 ML ML PO ONE (11:30)
[2023-06-15] MEDS ORDERED: MAG/ALUM/SIMETH 30 ML UDCUP PO ONE (11:30)
[2023-06-15] MEDS ORDERED: LIDOCAINE HCL 2% VISCOUS 15 ML UDCUP PO ONE (11:30)
[2023-06-15] MEDS ORDERED: MORPHINE 2 MG SYG IVP ONE (11:30)
[2023-06-15 11:43] LABS: APPEARANCE,URINE CLEAR (CLEAR); BILIRUBIN,URINE NEGATIVE (NEGATIVE); COLOR,URINE YELLOW (YELLOW); GLUCOSE, URINE (UA) NEGATIVE (NEGATIVE); KETONES,URINE NEGATIVE (NEGATIVE); LEUKOCYTE ESTERASE ,URINE NEGATIVE Leu/uL (NEGATIVE); NITRATE,URINE NEGATIVE (NEGATIVE); OCCULT BLOOD,URINE NEGATIVE (NEGATIVE); PROTEIN,URINE NEGATIVE (NEGATIVE); UROBILINOGEN,URINE 6 mg/dL (0.2-1.0)
[2023-06-15 11:52] LABS: ADD UA MICROSCOPIC YES
[2023-06-15 12:09] VITALS: BP 159/84; PULSE 66; RESP 18; O2SAT 97
[2023-06-15 12:51] LABS: WBC,URINE 0-1 /HPF (0-1)
[2023-06-15] MEDS ORDERED: ACET-2079 PO (12:53)
[2023-06-15] MEDS ORDERED: KETOROLAC 15MG/ML VIAL (15MG/ML) IV ONE (13:00)
== END 2023-06-15 13:07 | disposition home or self-care (01) ==
LOC: EDH 10:10
DX: K29.70 Gastritis, unspecified, without bleeding (principal); R10.13 Epigastric pain; I10 Essential (primary) hypertension; F17.200 Nicotine dependence, unspecified, uncomplicated; Z79.899 Other long term (current) drug therapy
CPT/HCPCS: 99285; 96374; 71045; 96375 ×2; 84484; 80053; 83880; 85025; 85610; 81001; 36415; 93005; J2270 ×2; J0360; J1885

== ENCOUNTER 2023-06-22 16:59 | Emergency (ER) | payer MEDICAID ==
[~2023-06-22] VITALS: Ht 175.3 cm; Wt 71.7 kg
[2023-06-22 17:59] LABS: BASOPHILS # (AUTO) 0.03 K/uL (0.00-0.20); BASOPHILS % (AUTO) 0.7 % (0.0-5.0); EOSINOPHILS # (AUTO) 0.03 K/uL (0.00-0.70); EOSINOPHILS % (AUTO) 0.7 % (0.0-8.0); HEMATOCRIT 34.7 % (42-54); IMMATURE GRANULOCYTE ABSOLUTE 0.01 K/uL (0-1); LYMPHOCYTES % (AUTO) 47.8 % (21.0-51.0); MEAN CORPUSCULAR HEMOGLOBIN 37.6 pg (27.0-33.0); MEAN CORPUSCULAR HGB CONC 34.6 g/dL (32.0-36.0); MEAN CORPUSCULAR VOLUME 108.8 fL (79-99); MONOCYTES # (AUTO) 0.2 K/uL (0.1-1.0); NEUTROPHILS # (AUTO) 1.9 K/uL (1.8-7.7); NEUTROPHILS % (AUTO) 45.6 % (40.0-77.0); PLATELET COUNT (AUTO) 191 K/uL (130-400); RED BLOOD CELL COUNT(AUTO) 3.19 MIL/uL (4.50-6.20); RED CELL DISTRIBUTION WIDTH 13.7 % (11.0-15.5); WHITE BLOOD COUNT (AUTO) 4.2 K/uL (4.8-10.8)
[2023-06-22 18:12] LABS: CREATININE 0.9 mg/dL (0.5-1.5); POTASSIUM 3.7 mmol/L (3.5-5.1)
[2023-06-22 18:22] LABS: ALBUMIN 3.3 g/dL (3.5-5.0); BILIRUBIN,TOTAL 0.3 mg/dL (0.2-1.0); TOTAL PROTEIN, SERUM 7.3 g/dL (6.0-8.3)
[2023-06-22 18:43] VITALS: BP 185/86; PULSE 75; RESP 20; O2SAT 97
[2023-06-22 18:43] LABS: B-TYPE NATRIURETIC PEPTIDE 68 pg/mL (0-100)
== END 2023-06-22 18:53 | disposition home or self-care (01) ==
LOC: EDH 16:59
DX: R51.9 Headache, unspecified (principal); M25.562 Pain in left knee; K21.9 Gastro-esophageal reflux disease without esophagitis; I10 Essential (primary) hypertension; F17.200 Nicotine dependence, unspecified, uncomplicated; Z79.899 Other long term (current) drug therapy
CPT/HCPCS: 36415; 71045; 80053; 83880; 84484; 85025; 93005

== ENCOUNTER → 2023-08-24 | Outpatient (CLI) | payer MEDICAID | END | disposition home or self-care (01) | LOC: RAH 11:11 | PROVIDERS: ATTEND Internal Medicine Gastroenterology | DX: R10.84 Generalized abdominal pain (principal); R11.2 Nausea with vomiting, unspecified | CPT/HCPCS: 78264; A9541 ==

== ENCOUNTER 2023-09-09 14:54 | Emergency (ER) | payer MEDICAID ==
[~2023-09-09] VITALS: Ht 175.3 cm; Wt 71.7 kg
[2023-09-09 15:38] LABS: BASOPHILS # (AUTO) 0.05 K/uL (0.00-0.20); BASOPHILS % (AUTO) 1.1 % (0.0-5.0); EOSINOPHILS # (AUTO) 0.12 K/uL (0.00-0.70); EOSINOPHILS % (AUTO) 2.5 % (0.0-8.0); HEMATOCRIT 35.4 % (42-54); IMMATURE GRANULOCYTE ABSOLUTE 0.02 K/uL (0-1); LYMPHOCYTES # (AUTO) 0.9 K/uL (1.0-4.8); LYMPHOCYTES % (AUTO) 19.7 % (21.0-51.0); MEAN CORPUSCULAR HEMOGLOBIN 36.7 pg (27.0-33.0); MEAN CORPUSCULAR HGB CONC 34.5 g/dL (32.0-36.0); MEAN CORPUSCULAR VOLUME 106.6 fL (79-99); MONOCYTES # (AUTO) 0.3 K/uL (0.1-1.0); MONOCYTES % (AUTO) 7.2 % (3.0-13.0); NEUTROPHILS # (AUTO) 3.3 K/uL (1.8-7.7); NEUTROPHILS % (AUTO) 69.1 % (40.0-77.0); PLATELET COUNT (AUTO) 197 K/uL (130-400); RED BLOOD CELL COUNT(AUTO) 3.32 MIL/uL (4.50-6.20); RED CELL DISTRIBUTION WIDTH 14.7 % (11.0-15.5); WHITE BLOOD COUNT (AUTO) 4.7 K/uL (4.8-10.8)
[2023-09-09] MEDS: NITROGLYCERIN 0.4 MG SL TAB SL PRN (15:40)
[2023-09-09 15:48] LABS: CREATININE 1.1 mg/dL (0.5-1.5); POTASSIUM 3.8 mmol/L (3.5-5.1)
[2023-09-09 15:53] LABS: ALBUMIN 3.4 g/dL (3.5-5.0); BILIRUBIN,TOTAL 0.5 mg/dL (0.2-1.0); TOTAL PROTEIN, SERUM 7.2 g/dL (6.0-8.3)
[2023-09-09 16:03] LABS: B-TYPE NATRIURETIC PEPTIDE 122 pg/mL (0-100)
[2023-09-09 17:12] VITALS: BP 165/85; PULSE 76; RESP 18; O2SAT 98
[2023-09-09] MEDS ORDERED: BENZ-39 PO (23:14)
== END 2023-09-09 17:51 | disposition left against medical advice (07) ==
LOC: EDH 14:54
DX: R07.89 Other chest pain (principal); L60.8 Other nail disorders; I10 Essential (primary) hypertension; K21.9 Gastro-esophageal reflux disease without esophagitis; F17.200 Nicotine dependence, unspecified, uncomplicated; Z79.899 Other long term (current) drug therapy; Z98.890 Other specified postprocedural states
CPT/HCPCS: 36415; 71045; 80053; 82550; 83880; 84484; 85025; 93005

== ENCOUNTER 2023-09-09 22:22 | Emergency (ER) | payer MEDICAID ==
[~2023-09-09] VITALS: Ht 175.3 cm; Wt 68.5 kg
[2023-09-09 22:30] VITALS: BP 157/90; PULSE 72; RESP 14; O2SAT 100
[2023-09-09 22:48] LABS: BASOPHILS # (AUTO) 0.05 K/uL (0.00-0.20); EOSINOPHILS # (AUTO) 0.13 K/uL (0.00-0.70); EOSINOPHILS % (AUTO) 2.7 % (0.0-8.0); HEMATOCRIT 35.3 % (42-54); IMMATURE GRANULOCYTE ABSOLUTE 0.02 K/uL (0-1); LYMPHOCYTES # (AUTO) 1.3 K/uL (1.0-4.8); LYMPHOCYTES % (AUTO) 26.5 % (21.0-51.0); MEAN CORPUSCULAR HEMOGLOBIN 36.2 pg (27.0-33.0); MEAN CORPUSCULAR HGB CONC 34.6 g/dL (32.0-36.0); MEAN CORPUSCULAR VOLUME 104.7 fL (79-99); MONOCYTES # (AUTO) 0.4 K/uL (0.1-1.0); MONOCYTES % (AUTO) 8.3 % (3.0-13.0); NEUTROPHILS # (AUTO) 2.9 K/uL (1.8-7.7); NEUTROPHILS % (AUTO) 61.1 % (40.0-77.0); PLATELET COUNT (AUTO) 200 K/uL (130-400); RED BLOOD CELL COUNT(AUTO) 3.37 MIL/uL (4.50-6.20); RED CELL DISTRIBUTION WIDTH 14.6 % (11.0-15.5); WHITE BLOOD COUNT (AUTO) 4.8 K/uL (4.8-10.8)
[2023-09-09 22:56] LABS: CREATININE 1.1 mg/dL (0.5-1.5); POTASSIUM 3.8 mmol/L (3.5-5.1)
[2023-09-09 23:02] LABS: INR <= 0.93 (0.85-1.15); PROTHROMBIN TIME 10.7 SEC (9.6-11.6)
[2023-09-09 23:03] LABS: ALBUMIN 3.5 g/dL (3.5-5.0); BILIRUBIN,TOTAL 0.6 mg/dL (0.2-1.0); MAGNESIUM 2.3 mg/dL (1.80-2.40); PARTIAL THROMBOPLASTIN TIME 26.7 SEC (26.3-35.5); TOTAL PROTEIN, SERUM 7.3 g/dL (6.0-8.3)
[2023-09-09] MEDS ORDERED: BENZ-39 PO (23:14)
== END 2023-09-09 23:43 | disposition home or self-care (01) ==
LOC: EDH 22:22
DX: R07.89 Other chest pain (principal); R05.9 Cough, unspecified; K21.9 Gastro-esophageal reflux disease without esophagitis; F17.200 Nicotine dependence, unspecified, uncomplicated; Z79.899 Other long term (current) drug therapy; Z98.890 Other specified postprocedural states
CPT/HCPCS: 36415; 71045; 80053; 83735; 84484; 85025; 85610; 85730; 93005